=== PATIENT | female | born 1995 | race African-American/Black ===

== ENCOUNTER 2018-09-13 15:36 | Emergency (ER) | payer OTHER ==
[2018-09-13] MEDS: MECLIZINE 25 MG TABLET PO (17:24)
== END 2018-09-13 18:07 | disposition home or self-care (01) ==
LOC: M ED 15:36
DX: R42 Dizziness and giddiness (principal); R11.0 Nausea; R51 Headache; Z88.0 Allergy status to penicillin; Z79.899 Other long term (current) drug therapy
CPT/HCPCS: 70450

== ENCOUNTER 2019-12-05 19:03 | Emergency (ER) | payer OTHER ==
[~2019-12-05] VITALS: Ht 160 cm; Wt 61.8 kg
[~2019-12-05 19:03] MED LIST: MECL1TAB31 PO; OMEP40CA97 PO; PROM50TA4 PO; REGL10TA6 PO; SUMA50TA2 PO; ZOFR4TAB14 PO
[2019-12-05] MEDS ORDERED: ACETAMINOPHEN 500 MG TAB PO ONE (19:30)
[2019-12-05 20:53] LABS: INFLUENZA A AMPLIFICATION POSITIVE (NEGATIVE); INFLUENZA B AMPLIFICATION NEGATIVE (NEGATIVE)
[2019-12-05] MEDS ORDERED: OSELTAMIVIR PHOSPHATE 75 MG CAP (TAMIFLU) PO ONE (21:15)
[2019-12-05] MEDS ORDERED: OSEL75CA PO (21:20)
[2019-12-05 21:49] VITALS: BP 102/60
== END 2019-12-05 21:50 | disposition home or self-care (01) ==
LOC: M ED 19:03
DX: J09.X2 Influenza due to identified novel influenza A virus with other respiratory manifestations (principal); Z88.0 Allergy status to penicillin

== ENCOUNTER → 2019-12-17 | Outpatient (REF) | payer OTHER ==
[~2019-12-17] MED LIST changes: +OSEL75CA PO
[2019-12-17 17:35] LABS: BASO % 0.9 % (0.0-1.0); EOS # 0.2 10^3/uL (0.0-0.5); EOS % 4.5 % (0.0-3.0); HEMATOCRIT 38.7 % (36.0-47.0); HEMOGLOBIN 12.8 g/dl (12.0-15.5); LYMPH # 2.3 10^3/uL (1.5-5.0); LYMPH % 48.9 % (24.0-44.0); MEAN CORPUSCULAR HEMOGLOBIN 27.2 pg (27.0-33.0); MEAN CORPUSCULAR HGB CONC 33.1 g/dl (32.0-36.5); MEAN CORPUSCULAR VOLUME 82.3 fl (80.0-96.0); MONO # 0.3 10^3/uL (0.0-0.8); MONO % 7.3 % (0.0-5.0); NEUTROPHILS # 1.8 10^3/uL (1.5-8.5); PLATELET COUNT, AUTOMATED 315 10^3/uL (150-450); WHITE BLOOD COUNT 4.6 10^3/uL (4.0-10.0)
[2019-12-17 18:01] LABS: ALBUMIN 3.7 GM/DL (3.2-5.2); ALT/SGPT 14 U/L (12-78); BILIRUBIN,TOTAL 0.4 MG/DL (0.2-1.0); BLOOD UREA NITROGEN 9 MG/DL (7-18); CALCIUM LEVEL 8.5 MG/DL (8.5-10.1); CARBON DIOXIDE LEVEL 27 MEQ/L (21-32); CHLORIDE LEVEL 110 MEQ/L (98-107); GLOMERULAR FILTRATION RATE > 60.0 (>60); GLUCOSE, FASTING 83 MG/DL (70-100); POTASSIUM SERUM 4.3 MEQ/L (3.5-5.1); RHEUMATOID FACTOR QUANT < 10.0 IU/ML (<15.0); SODIUM LEVEL 142 MEQ/L (136-145); TOTAL PROTEIN 7.2 GM/DL (6.4-8.2)
[2019-12-17 18:08] LABS: ERYTHROCYTE SEDIMENTATION RATE 8 mm/hr (0-20)
[2019-12-17 18:11] LABS: TOTAL 25(OH) VITAMIN D 14.5 NG/ML (30.0-100.0); VITAMIN B12 LEVEL 446 PG/ML
[2019-12-17 18:12] LABS: FOLATE 10.3 NG/ML
[2019-12-19 14:07] LABS: ANTINUCLEAR ANTIBODIES DIRECT Negative (Negative)
== END ==
LOC: M LABNEURO 14:58
PROVIDERS: ATTEND Psychiatry & Neurology Neurology
DX: R51 Headache (principal)